=== PATIENT | male | born 1945 | race Caucasian/White ===

== ENCOUNTER → 2023-07-14 | Outpatient (CLI) | payer OTHER ==
[~2023-07-14] MED LIST: ACET-93 PO; AMIO200T65 PO; APIX5TAB PO; DOXE25CA46 PO; EZET10TA83 PO; HOLD METFORMIN - RECEIVED CONTRAST 20 ML VIAL IV SCH; IOHEXOL 350 MG/ML 100 ML (OMNIPAQUE 350) VIAL IV ONE; MULT-1029 PO; NIAC500T24 PO; NS 100 ML (IVPB) BAG IV ONE; OXYC1TAB87 PO; ROPI0.5T37 PO; ROSU20TA2 PO; TRIA1CAP84 PO
[2023-07-14 08:29] LABS: CREATININE SERUM 1.1 MG/DL (0.60-1.30)
--- NOTE | 2023-07-14 11:47 | Diagnostic Imaging Report ---
PROCEDURE: CT abdomen and pelvis with and without contrast. TECHNIQUE: Precontrast acquisitions were acquired through the abdomen and pelvis. Multiple contiguous axial images were obtained through the abdomen and pelvis after the administration of intravenous contrast. Auto Exposure Controls were utilized during the CT exam to meet ALARA standards for radiation dose reduction. INDICATION: Hematuria for one month. No prior studies are available for comparison. FINDINGS: The lung bases are clear. No liver mass is identified. Gallbladder surgically absent. There is no biliary ductal dilatation. The pancreas and spleen are unremarkable. No adrenal mass is identified. No renal calculi are identified. No renal masses are identified. Both renal collecting systems and ureters are unremarkable. No filling defects are detected. No bladder wall thickening or mass is identified. Aorta is calcified but nonaneurysmal. Bowel loops appear to be normal caliber. There is a right inguinal hernia containing small bowel loops. No strangulation or bowel obstruction is identified. Prostate is mildly enlarged. IMPRESSION: 1. No evidence of urinary tract calculi, mass or obstruction. 2. Small bowel containing right inguinal hernia without evidence of strangulation or bowel obstruction. 3. Prostatomegaly. Dictated by: Dictated on workstation # [id number]
== END ==
LOC: RAD 06:39
PROVIDERS: ATTEND Nurse Practitioner Primary Care
DX: K40.90 Unilateral inguinal hernia, without obstruction or gangrene, not specified as recurrent (principal); N40.0 Benign prostatic hyperplasia without lower urinary tract symptoms
CPT/HCPCS: 36415; 74178; 82565; 84520